=== PATIENT | male | born 1965 | race Caucasian/White ===

== ENCOUNTER 2023-11-27 23:02 | Emergency (ER) | payer OTHER, SELFPAY ==
[2023-11-27 23:04] VITALS: BP 118/88; PULSE 147; RESP 18; TEMP 36.6; O2SAT 94; BMI 23.8
--- NOTE | 2023-11-27 23:10 | PC.NURSE ---
Pt on bedside compound specialist
--- NOTE | 2023-11-27 23:11 | ECG_ITS ---
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 Measurements Intervals [place] Rate: 146 P: 0 NH: 0 QRS: 86 QRSD: 89 T: -85 QT: 251 QTc: 392 Interpretive Statements ATRIAL FIBRILLATION WITH RAPID VENTRICULAR RESPONSE ST DEVIATION AND MODERATE T-WAVE ABNORMALITY, CONSIDER LATERAL ISCHEMIA [-0.1+ mV T-WAVE IN I/aVL/V5/V6] ST DEVIATION AND MODERATE T-WAVE ABNORMALITY, CONSIDER INFERIOR ISCHEMIA [-0.1+ mV T-WAVE IN II/aVF] No previous ECG available for comparison Electronically Signed On 11-28-2023 9:12:28 REGISTERED VETERINARY TECHNICIAN by Oscar Stacy M.D. [id number]
--- NOTE | 2023-11-27 23:12 | XRR_ITS ---
PROCEDURE INFORMATION: Exam: XR Chest Exam date and time: 11/27/2023 11:15 PM Age: 58 years old Clinical indication: Chest pressure; Patient HX: Chest pain with afib TECHNIQUE: Imaging protocol: Radiologic exam of the chest. Views: 1 view. COMPARISON: No relevant prior studies available. FINDINGS: Lungs: Septal lines at each lung base are concerning for mild edema. No airspace disease. Pleural spaces: Trace left pleural effusion. No pneumothorax on either side. Heart/Mediastinum: Heart size is normal. Bones/joints: Age appropriate. XR/XR chest 1V portable [id number] IMPRESSION: Basilar septal lines are concerning for mild edema. Trace left pleural effusion.
[2023-11-27] MEDS: dilTIAZem 5 mg/mL SDV 5 mL 20 MG IVP (23:18)
--- NOTE | 2023-11-27 23:20 | W.ED.CHESTPA ---
HPI - Chest Pain General: Chief Complaint: Chest Pain Stated Complaint: cardiac arrhythmia Time Seen by Provider: 11/27/23 23:07 History of Present Illness: Patient presents to the ER by EMS with complaints of fast heart rate. He called EMS 11 structures up to be checked out. When EMS got there his heart rate was about 200 bpm. They convinced him to come in to be checked out they gave him 20 mg of Cardizem and his heart rate come down to about 150 bpm. Patient does have a history of A-fib but has not been admitted since his ablation. Patient denies any chest pain, nausea, vomiting, abdominal pain, fevers, chills Upon further talking to the patient he now states he remembers what medicine he is on. He is on Eliquis, lorazepam, mirtazapine, metformin, and a cholesterol medicine. He says the lorazepam and mirtazapine are to help him sleep. Review of Systems General: Reports: 10 or more systems reviewed and unremarkable except in HPI and below Physical Exam Const: COMMON NORMALS: no acute distress, average body habitus, patient oriented x3, no limitations, healthy appearing, alert and well nourished HENMT: COMMON NORMALS: normocephalic, atraumatic, hearing grossly normal bilaterally, external ears normal, EAC's normal, Normal external nose present, moist oral mucous membranes and oropharynx normal HEAD & SCALP: normocephalic and atraumatic NOSE: Normal external nose present EXTERNAL EAR: Yes external ears normal EXTERNAL AUDITORY CANAL: EAC's normal Neck/C-Spine: COMMON NORMALS: full ROM, no lymphadenopathy, supple, no meningeal signs, no JVD and Thyroid normal THYROID: Thyroid normal Chest: COMMONS NORMALS: normal inspection of the chest and normal palpation of entire chest wall Resp: COMMON NORMALS: normal respiratory effort, No retractions, No use of accessory muscles and clear to auscultation bilaterally AUSCULTATION: clear to auscultation bilaterally Cardio: COMMON NORMALS: no JVD, S1 normal heart sound present, S2 normal heart sound present, No gallops present (Cardio), No clicks present (Cardio), No murmurs present (Cardio) and No rub (Cardio); negative for regular rhythm (Irregularly irregular tachycardic rhythm) RHYTHM: abnormal rhythm (Irregularly irregular tachycardic rhythm) HEART SOUNDS: S1 normal heart sound present and S2 normal heart sound present GI: COMMON NORMALS: Normal to inspection, nondistended, normoactive bowel sounds present, Soft to palpation, non-tender, No hepatosplenomegaly present and no masses PALPATION: Yes Soft to palpation and Yes No hepatosplenomegaly present Neuro: COMMON NORMALS: patient oriented x3 SENSORIUM/ORIENTATION: Yes alert MENINGEAL SIGNS: Yes no meningeal signs Course Vital Signs: Vital signs: Vital Signs Temperature 97.9 F 11/27/23 23:04 Pulse Rate 165 H 11/28/23 01:04 Respiratory Rate 22 H 11/28/23 01:04 Blood Pressure 115/78 11/28/23 01:04 Pulse Oximetry 91 11/28/23 01:04 Oxygen Delivery Me thod Room Air 11/27/23 23:04 MDM - Chest Pain Medical Decision Making Patient presents to the ER with a heart rate of 160 bpm with A-fib with RVR. This is even after EMS gave him 20 mg Cardizem. Patient was placed on a Cardizem drip and titrated up per protocol while waiting lab work to return. This did not change his heart rate and patient was eventually placed on amiodarone drip. Lab work showed his mildly elevated white count of 15, magnesium 1.5, urinalysis showed 4+ glucose and positive for benzos. These labs was discussed with the patient and Dr. Francisco. Patient will be placed in [facility] for further evaluation and treatment. With Dr. Francisco come down talk to the patient he obviously has a change of opinion and says he will not stay here no matter what. When his daughter gets here he is leaving no matter what. Both myself and Dr. Francisco tried to convince the patient that his heart rate being in the 160 is not good and this could lead to debility, disability CVA, blood clot, and even . Patient is adamant about leaving and says he will go to his family doctor and get this worked out. Patient will be leaving AMA. Differential Diagnosis Unlikely acute massive pulmonary embolism, acute respiratory failure, acute myocardial infarction, cardiac arrest or sudden cardiac Medical Records I reviewed the patient's medical records. Lab Data I reviewed the patient's lab results. 11/27/23 23:11 11/27/23 23:11 Radiology Impressions Chest X-Ray 11/27/23 23:12 IMPRESSION: Basilar septal lines are concerning for mild edema. Trace left pleural effusion. Laboratory Results WBC 15.39 10^3/uL (3.29-11.43) H 11/27/23 23:11 RBC 5.18 10^6/uL (3.85-5.65) 11/27/23 23:11 Hgb 15.30 g/dL (11.27-16.99) 11/27/23 23:11 Hct 46.3 % (37-53) 11/27/23 23:11 MCV 89.4 fl (82-101) 11/27/23 23:11 MCH 29.5 pg (27-33) 11/27/23 23:11 MCHC 33.0 g/dL (30-55) 11/27/23 23:11 RDW 14.6 % (12.1-15.1) 11/27/23 23:11 Plt Count 362 10^3/cmm (157-399) 11/27/23 23:11 MPV 9.9 fL (7.4-10.4) 11/27/23 23:11 Neut % (Auto) 79.4 % 11/27/23 23:11 Lymph % (Auto) 9.9 % 11/27/23 23:11 [place] % (Auto) 8.0 % 11/27/23 23:11 Eos % (Auto) 1.6 % 11/27/23 23:11 Baso % (Auto) 0.6 % 11/27/23 23:11 Neut # (Auto) 12.21 10^3/uL (1.8-7.7) H 11/27/23 23:11 Lymph # (Auto) 1.5 10^3/uL (0.8-4.8) 11/27/23 23:11 [place] # (Auto) 1.2 10^3/uL (0.2-0.9) H 11/27/23 23:11 Eos # (Auto) 0.3 10^3/uL (0.0-0.8) 11/27/23 23:11 Baso # (Auto) 0.1 10^3/uL (0.0-0.1) 11/27/23 23:11 Nucleated RBC % (auto) 0 % 11/27/23 23:11 Nucleated RBCs # 0.0 /100WBC 11/27/23 23:11 PT 12.90 SECONDS (12.1-14.9) 11/27/23 23:11 INR 0.95 (0.8-1.2) 11/27/23 23:11 Specimen Type Arterial 11/28/23 01:08 Sample Site Brachial, left 11/28/23 01:08 ABG pH 7.43 (7.35-7.45) 11/28/23 01:08 ABG pCO2 35.1 mmHg (35-45) 11/28/23 01:08 ABG pO2 55.5 mmHg (80.0-100.0) L 11/28/23 01:08 ABG PO2/FiO2 Ratio 0 11/28/23 01:08 ABG HCO3 23.5 mmol/L (22-26) 11/28/23 01:08 ABG O2 Saturation 93.0 11/28/23 01:08 ABG Base Excess -0.3 mmol/L (-2.0-2.0) 11/28/23 01:08 Korey Test Pos 11/28/23 01:08 A-a O2 Gradient 6.3 mmHg (5-10) 11/28/23 01:08 Hematocrit 47.4 % (42-52) 11/28/23 01:08 Hgb O2 Saturation 87.2 % (95-100) L 11/28/23 01:08 Carboxyhemoglobin 5.4 %THgb (0.4-20.1) 11/28/23 01:08 Methemoglobin 0.8 % (0.4-1.5) 11/28/23 01:08 Total Hemoglobin 15.5 g/dL (14-18) 11/28/23 01:08 Sodium 133.0 mmol/L (131-143) 11/28/23 01:08 Potassium 3.9 mmol/L (3.5-5.0) 11/28/23 01:08 Glucose 320.0 mg/dL (70-115) H 11/28/23 01:08 Ionized Calcium 1.2 mmol/L (1.1-1.4) 11/28/23 01:08 O2 Delivery Device None 11/28/23 01:08 FiO2 21.0 % 11/28/23 01:08 Automobile Washer Steam ID [email or web address] 11/28/23 01:08 Sodium 131 mmol/L (136-145) L 11/27/23 23:11 Potassium 4.0 mmol/L (3.5-5.1) 11/27/23 23:11 Chloride 97 mmol/L (98-107) L 11/27/23 23:11 Carbon Dioxide 19 mmol/L (22-29) L 11/27/23 23:11 Anion Gap 19.0 (5-19) 11/27/23 23:11 BUN 9 mg/dL (6-20) 11/27/23 23:11 Creatinine 0.6 mg/dL (0.7-1.2) L 11/27/23 23:11 GFR Calculation 137.9 mL/min (90-130) H 11/27/23 23:11 Glucose 290 mg/dL (65-115) H 11/27/23 23:11 Calculated Osmolality 281 mOsm/kg (285-295) L 11/27/23 23:11 Calcium 8.5 mg/dL (8.5-10.5) 11/27/23 23:11 Magnesium 1.5 mg/dL (1.7-2.3) L 11/27/23 23:11 Total Bilirubin 0.2 mg/dL (0.15-1.2) 11/27/23 23:11 AST 10 U/L (0-40) 11/27/23 23:11 ALT 7 U/L (0-41) 11/27/23 23:11 Alkaline Phosphatase 108 U/L (40-130) 11/27/23 23:11 Troponin T Baseline 12 ng/L (0-15) 11/27/23 23:11 Troponin T 120 Minute 9.65 ng/L (0-15) 11/28/23 01:00 Total Protein 6.6 g/dL (6.6-8.7) 11/27/23 23:11 Albumin 4.0 g/dL (3.5-5.2) 11/27/23 23:11 Globulin 2.6 g/dL (1.3-4.6) 11/27/23 23:11 TSH 0.89 uIU/mL (0.27-4.20) 11/27/23 23:11 Urine Color Yellow (Yellow) 11/28/23 00:08 Urine Appearance Clear (CLEAR) 11/28/23 00:08 Urine pH 5 (5-7) 11/28/23 00:08 Ur Specific [place] 1.020 (1.005-1.030) 11/28/23 00:08 Urine Protein Neg (Negative) 11/28/23 00:08 Urine Glucose (UA) 4+ (Normal) H 11/28/23 00:08 Urine Ketones 2+ (Negative) H 11/28/23 00:08 Urine Blood Neg (Negative) 11/28/23 00:08 Urine Nitrate Negative (Negative) 11/28/23 00:08 Urine Bilirubin Neg (Negative) 11/28/23 00:08 Urine Urobilinogen Neg mg/dL (Negative) 11/28/23 00:08 Ur Leukocyte Esterase Negative (Negative) 11/28/23 00:08 Urine Opiates Screen Negative ng/mL (Negative) 11/28/23 00:08 Ur Barbiturates Screen Negative ng/mL (Negative) 11/28/23 00:08 Ur Phencyclidine Scrn Negative ng/mL (Negative) 11/28/23 00:08 Ur Amphetamines Screen Negative ng/mL (Negative) 11/28/23 00:08 U Benzodiazepines Scrn Positive ng/mL (Negative) H 11/28/23 00:08 Urine Cocaine Screen Negative ng/mL (Negative) 11/28/23 00:08 U Marijuana (THC) Screen Negative ng/mL (Negative) 11/28/23 00:08 Serum Ketones Negative (Negative) 11/27/23 23:11 All radiology interpretation(s) finalized by discharge EKG Data EKG 1: I personally reviewed and interpreted this EKG as follows: EKG interpretation date: 11/27/23 EKG interpretation time: 23:11 Prior EKG tracings: not available for review Interpretation: Ventricular rate 146 bpm, QRS duration 89, QTc of 335, A-fib with RVR, Critical Care Time Critical Care Time: Critical Care Time: Yes Total Critical Care Time: 30 Attestation: The patient was emergently evaluated this patient's presentation and case had a high probability of a clinically significant, sudden, or life-threatening deterioration of the patient's initial critical presentation or condition which required my full and direct attention, intervention and personal management. Discharge Plan Discharge Patient Disposition: Left Against Medical Advice Clinical Impression: Atrial fibrillation with rapid ventricular response, Left against medical advice Condition: Stable Patient Instructions: A-fib (Atrial Fibrillation) (ED), Against Medical Advice (ED) Activity Restrictions/Additional Instructions: You are in atrial fibrillation with rapid ventricular response, your heart rate is approximate 160 beats a minute which is highly abnormal. We have given you multiple medicines to try to correct this, we feel you need to to be evaluated as an inpatient in the hospital otherwise you may have an adverse outcome. You are at a high risk for debility, disability, heart attack blood clot, stroke, and even . If you leave the hospital it is AGAINST MEDICAL ADVICE and you are putting your health and even your life at risk. Coding Level of Care Code ED Marketing Executive for Segun Vickers
[2023-11-27 23:22] VITALS: BP 107/73; PULSE 173; RESP 20; O2SAT 93
[2023-11-27 23:22] LABS: Basophils # 0.1 10^3/uL (0.0-0.1); Basophils % 0.6 %; Eosinophils # 0.3 10^3/uL (0.0-0.8); Eosinophils % 1.6 %; Hematocrit 46.3 % (37-53); Lymphocytes # 1.5 10^3/uL (0.8-4.8); Lymphocytes % 9.9 %; Mean Corpuscular Hemoglobin 29.5 pg (27-33); Mean Corpuscular Volume 89.4 fl (82-101); Mean Platelet Volume 9.9 fL (7.4-10.4); Monocytes # 1.2 10^3/uL (0.2-0.9); Neutrophils # 12.21 10^3/uL (1.8-7.7); Neutrophils % 79.4 %; Nucleated Red Blood Cells % 0 %; Platelet Count 362 10^3/cmm (157-399); Red Blood Count 5.18 10^6/uL (3.85-5.65); Red Cell Distribution Width 14.6 % (12.1-15.1); White Blood Count 15.39 10^3/uL (3.29-11.43)
[2023-11-27 23:32] VITALS: BP 122/79; PULSE 167; RESP 18; O2SAT 93
[2023-11-27] MEDS: dilTIAZem 100 MG in sodium chloride 0.9% (add-van) 100 ML IV (23:32)
[2023-11-27 23:33] LABS: INR 0.95 (0.8-1.2)
[2023-11-27 23:41] LABS: Troponin(5th) Baseline 12 ng/L (0-15)
[2023-11-27 23:48] VITALS: BP 132/82; PULSE 167; RESP 20; O2SAT 94
[2023-11-27 23:48] LABS: Alanine Aminotransferase 7 U/L (0-41); Alkaline Phosphatase 108 U/L (40-130); Aspartate Amino Transferase 10 U/L (0-40); Blood Urea Nitrogen 9 mg/dL (6-20); Calcium 8.5 mg/dL (8.5-10.5); Carbon Dioxide 19 mmol/L (22-29); Chloride 97 mmol/L (98-107); Globulin 2.6 g/dL (1.3-4.6); Glomerular Filtration Rate 137.9 mL/min (90-130); Glucose 290 mg/dL (65-115); Magnesium 1.5 mg/dL (1.7-2.3); Osmolality Calculated 281 mOsm/kg (285-295); Sodium 131 mmol/L (136-145); Thyroid Stimulating Hormone 0.89 uIU/mL (0.27-4.20); Total Bilirubin 0.2 mg/dL (0.15-1.2); Total Protein 6.6 g/dL (6.6-8.7)
[2023-11-28] VITALS (14 sets, daily range): BP systolic 90–138; BP diastolic 52–83; PULSE 104–166; RESP 18–24; O2SAT 90–92
[2023-11-28 00:20] LABS: Add Urine Microscopic? NO; Charge for UA Resulting for Rev
[2023-11-28 00:28] LABS: Bilirubin Urine Neg (Negative); Blood Urine Neg (Negative); Glucose Urine UA 4+ (Normal); Ketones Urine 2+ (Negative); Leukocyte Esterase Urine Negative (Negative); Nitrate Urine Negative (Negative); Protein Urine Neg (Negative); Urine Appearance Clear (CLEAR); Urine Color Yellow (Yellow); Urobilinogen Urine Neg (Negative); pH Urine 5 (5-7)
[2023-11-28 00:30] LABS: Amphetamines Screen Urine Negative (Negative); Barbiturates Screen Urine Negative (Negative); Benzodiazepines Screen Urine Positive (Negative); Cocaine Screen Urine Negative (Negative); Opiate Screen Urine Negative (Negative); PCP Screen Urine Negative (Negative); THC Screen Urine Negative (Negative)
[2023-11-28] MEDS: amiodarone 150 MG/100 ML PREMIX 400 MG IV (01:03)
[2023-11-28 01:14] LABS: ABG PCO2 35.1 mmHg (35-45); ABG PH Result 7.43 (7.35-7.45); Alveolar-Arterial Oxygen Gradi 6.3 mmHg (5-10); Arterial Blood Gas Hematocrit 47.4 % (42-52); Base Excess ABG -0.3 mmol/L (-2.0-2.0); Blood Gas Allen Test Pos; Blood Gas Sample Site Brachial, left; Blood Gas Sample Type Arterial; Carboxyhemoglobin 5.4 %THgb (0.4-20.1); HCO3 ABG 23.5 mmol/L (22-26); HGB O2 Sat 87.2 % (95-100); Ionized Calcium Level - ABG 1.2 mmol/L (1.1-1.4); Methemoglobin 0.8 % (0.4-1.5); PO2 ABG 55.5 mmHg (80.0-100.0); PO2 FiO2 Ratio Arterial Blood 0; Potassium Level - ABG 3.9 mmol/L (3.5-5.0); Total Hemoglobin 15.5 g/dL (14-18)
[2023-11-28 01:22] LABS: Troponin 5 2HR 9.65 ng/L (0-15)
[2023-11-28 01:23] LABS: Ketone (Acetest) Serum Negative (Negative)
[2023-11-28 01:24] LABS: Troponin 5 2HR Delta -2.35 ABS# (0-10)
--- NOTE | 2023-11-28 01:35 | PC.NURSE ---
Nurse in room starting amiodorone drip while hospitalist enters room to do admission assessment. Patient states that he is not staying and that his daughter is on the way to pick him up. Hospitalist and ER provider both had conversations with patient while nurse present about the risks of leaving including . Patient voices he understands but he feels better now and his heart rate is only elevated because the hospital staff is making him angry by trying to make him stay. Nurse explained to patient that he was sleeping just a few minutes earlier and his heart rate was still in the 160s. Nurse explained that this heart rate can lead to cardiac failure and . Patient agrees to stay on medication and monitor until his daughter arrives but then he is leaving. Nurse discussed with boiler house operator Alba about seeing if daughter can convince patient to stay when she arrives.
--- NOTE | 2023-11-28 04:53 | PC.NURSE ---
Patient calls nurse with call light and states can you get all this off of me motioning to IV medication and monitor. Nurse educated patient about the need to be on medication and monitors due to tachycardia and that nurse was hoping when daughter arrived that she would be able to understand the severity of the patients condition and help patient understand the need to stay in [facility]. Pt states he is not staying under any circumstance and he is ready to go. Nurse advised patient that if he has a cardiac failure in waiting room that nurse would have no way of knowing unless someone witnessed him go down. Patient states he is fine and he wants to leave. Nurse dc medications, removed IVs, removed monitor, and took pt to waiting room
== END 2023-11-28 05:09 | disposition left against medical advice (07) ==
PROVIDERS: Emergency Provider Emergency Medicine
DX: I48.20 Chronic atrial fibrillation, unspecified (principal); Z53.29 Procedure and treatment not carried out because of patient's decision for other reasons
CPT/HCPCS: 36600; 71045; 80051; 80053; 80306; 81003; 82009; 82330; 82805; 83735; 84443; 84484; 85025; 85610; 93005; 96365; 96366; 96367; 96375; 99285; A4222; J0283; J3490